=== PATIENT | male | born 1990 | race Caucasian/White ===

== ENCOUNTER 2025-05-08 09:36 | Emergency (ER) | payer OTHER, SELFPAY ==
--- OUTSIDE RECORDS SUMMARY | 2024-02-14 07:30 | XMS_ITS ---
Author Organization [facility] Address [address] [place] [id number] Care Team Providers Care Manager Of Selection And Assessment Name Role Phone NO, PCP Primary Care Provider [phone] [facility] Unavailable [phone] REASON FOR VISIT office: [facility] Encounters Encounter Location Date Provider Diagnosis [address] [id number] 02/14/2024 [facility] Plan Of Treatment No Information Progress Notes * Giovany FRANCISCOOB:[birth year] (35 yo M)Acc No.[id number]:02/14/2024 Patient: Jennifer mohinder PARRISH Provider: Jermaine ABRAMS [facility] :1990 A ge:34 Y S ex:Male Date:02/14/2024 [facility] [id number] Pcp:PCP NO Subjective: * Chief Complaints: * 1 . Office: [facility]. * Medical History: Objective: Assessment: Plan: * Images: Billing Information: Care Plan Details* * Electronic signature of [facility] on 05/08/2025 at 11:11 AM EDT Sign off status: Pending * Provider: Jermaine ABRAMS [facility] Date: 0 02/14/2024 Generated for Blaine altamirano/Rehan/eTransmitting on: 1 11:11 AM EDT
[2025-05-08 09:40] VITALS: BP 140/87; PULSE 76; RESP 18; TEMP 36.6; O2SAT 98; BMI 28.2
--- NOTE | 2025-05-08 09:47 | PC.NURSE ---
Patient walking to triage room with unsteady gait
--- NOTE | 2025-05-08 10:00 | ED.GENADULT ---
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 Approximately 9 days ago he sustained an injury while working with one of his clients. He describes being struck under his jaw when he was standing over the client. Apparently the patient stood up very rapidly and the client's head struck the patient on his jaw with a great deal of force. The patient has a headache and felt unwell immediately after. He was seen by a nurse at the facility where he works and was thought to possibly have a mild concussion. However over the ensuing hours the patient felt increasingly dizzy and nauseated. He had 2 episodes of vomiting and he felt confused. He was referred to an urgent care. At the urgent care they felt that he was ataxic and walking into gaona and so he was sent by ambulance to the [facility] Emergency room. At the [facility] Emergency room there was a very long wait. He says he was there for about 15 hours. Ultimately he was seen by a provider and had a head CT that was negative. He was felt to have a postconcussive syndrome and was discharged from the emergency room the following morning. The patient stayed out of work for the next couple of days but tried to returned to work on Sunday, 3 days ago. He was supposed to have certain accommodations at work which he says he was not given. He had worsening headache and photophobia and dizziness and he stayed out of work on Sunday and yesterday on . He was trying to get seen again at the urgent care. Today he had an appointment at the urgent care for these ongoing symptoms and he was referred to the emergency room because of concern about nystagmus. At the moment he describes having a headache, photophobia, and dizziness. Related Data Allergies Allergy/AdvReac Type Severity Reaction Status Date / Time No Known Allergies Allergy Verified 05/08/25 09:44 Review of Systems Review of Systems: Yes all other systems are reviewed and are negative PMFSH Social History Social History Advance Directives: No Advance Directives Information Provided: No Do you have a plan to hurt others: No Plan Physical Exam ED Vital Signs: Vital Signs - 24 hr 05/08/25 09:40 05/08/25 12:16 05/08/25 14:36 Temperature 97.9 F 98 F 98 F Pulse Rate 76 65 65 Respiratory Rate 18 16 16 Blood Pressure 140/87 H 100/56 L 100/56 L Pulse Oximetry 98 97 97 Oxygen Delivery Method Room Air Room Air Room Air BMI result Body Mass Index 28.2 Const Other: The patient is awake and alert. He had a normal mental status. He did not seem in obvious distress although he was sitting in a dark room and said that he was bothered by the lights. HENMT Other: Face is symmetrical. Mucous membranes moist. Tongue is midline. Eyes Other: Pupils are round and equal and reactive to light, extraocular movements are intact. There may be some extremely fine and very subtle nystagmus which does not really seem directional at all. However this is a very equivocal finding. Overall his eye exam seems unremarkable. Neck Other: No significant posterior midline C-spine tenderness. He was moving his neck fairly easily. C-spine was clinically clear. Resp Effort & Inspection: normal respiratory effort Auscultation: clear to auscultation bilaterally Cardio Rate: regular rate Rhythm: regular rhythm Heart sounds: S1 normal heart sound present and S2 normal heart sound present GI Other: Abdomen is soft and nontender Skin Other: The skin is dry and unremarkable Neuro Other: The patient is awake, alert, oriented, appropriate. He seems photophobic. However his mental status seems entirely clear and he was able to relate his history appropriately. There was no evidence of confusion or lack of fluency in his speech. Pupils are round, equal, and reactive to light. There may be some extremely fine nystagmus of uncertain significance.. His face is symmetrical. His speech is clear and without aphasia or dysarthria. He moves his extremities with symmetrical strength and coordination. Finger-nose is normal. Heel-duarte is normal. He seems to have a nonfocal neurological exam. Extrem Other: No peripheral edema Medications Administered Discontinued Medications Generic Name Dose Route Start Last Admin Trade Name Freq PRN Reason Stop Dose Admin Diphenhydramine HCl 25 mg 05/08/25 10:23 05/08/25 10:59 Diphenhydramine Hcl 50 Mg/Ml Vial IVPUSH 05/08/25 10:24 25 mg ONCE ONE Administration Sodium Chloride 1,000 mls @ 999 mls/hr 05/08/25 10:30 05/08/25 14:30 Ns IV 05/08/25 11:30 Infused .Q1H1M ARMANDO Infusion Ketorolac Tromethamine 15 mg 05/08/25 10:23 05/08/25 10:59 Ketorolac Tromethamine 15 Mg/Ml Vial IVPUSH 05/08/25 10:24 15 mg ONCE ONE Administration Metoclopramide HCl 10 mg 05/08/25 10:23 05/08/25 10:59 Metoclopramide Hcl 10 Mg/2 Ml Vial IVPUSH 05/08/25 10:24 10 mg ONCE ONE Administration Medical Decision Making Medical Decision Making [facility] Narrative: The patient is a 35-year-old male who presents to the emergency room with symptoms of a headache and nausea and photophobia 9 days after a head injury. He has already had a negative head CT at [facility]'s Emergency room. Clinically the patient does not seem significantly acutely ill and he does not have a concerning focal neurological finding. I do not think he requires additional imaging today. My assumption is that he is having some kind of a postconcussive syndrome. I do not see an indication for additional imaging. The patient was treated symptomatically with IV ketorolac, metoclopramide, diphenhydramine, and IV fluids. He felt considerably better. The patient will be discharged to rest over the weekend. He will resume work on Sunday with work restrictions that were provided by the occupational health clinic he has been to, [facility]. The patient is not have a primary care doctor. He is advised to try to get a primary care doctor. He should contact his insurance for a list of PCP's who take his insurance. He should return if worse. Discharge Plan Discharge Clinical Impression: Post-concussion headache Patient Disposition: Home, Self-Care Instructions: Concussion (ED) Additional Instructions: Please rest and take it easy over the weekend. Please keep your follow up appointment with the work-related injury clinic, [facility], next week. Please also work on getting a primary care doctor. I would recommend contacting your insurance to see what primary care doctor's might be taking your insurance. Return to the emergency room if significantly worse. Referrals: [facility] [Outside] Stand Alone Forms: Work/School Release Interventions: ED Discharge Assessment Last Done: 05/08/25 14:36 Discharge Date/Time: 05/08/25 14:36 Print Language: Vietnamese
--- OUTSIDE RECORDS SUMMARY | 2025-05-08 11:12 | XMS_ITS | Patient Health Record ---
Author Organization [facility] Address [address] [place] [id number] Care Team Providers Care Flare Stitcher Name Role Phone NO, PCP Primary Care Provider [facility] Unavailable [phone] Reason For Referral No Information Plan Of Treatment No Information Insurance Providers Payer Name Payer Address Payer Phone Subscriber Number Group Number Insured Name Patient Relationship to Insured Coverage Start Date Coverage End Date Insurance - None Need to apply for insurance [id number] [facility] [place] [id number] mohinder [place] Self - patient is the insured 4
--- OUTSIDE RECORDS SUMMARY | 2025-05-08 11:12 | XMS_ITS | Clinical Summary ---
Author Organization [facility] [place] [address] Care Team Providers Care Quarryman Name Role Phone Unknown Primary Care Provider Unavailabl e Immunizations Immunization Administration Dates Next Due Influenza Quadrivalent, Preservative Free 2016 Tdap (Adacel, Boostrix) 03/14/2017 Social History Tobacco Use Types Packs/Day Years Used Date Smoking Tobacco: Never Assessed Sex and Gender Information Value Date Recorded Sex Assigned at Not on file Legal Sex Male 8:55 AM EDT Gender Identity Not on file Sexual Orientation Not on file Last Filed Vital Signs Vital Sign Reading Time Taken Comments Blood Pressure 110/78 03/14/2017 3:52 PM EDT Sourced from [facility]version Pulse 113 03/14/2017 3:40 PM EDT Sourced from [facility] Temperature - - Respiratory Rate - - Oxygen Saturation - - Inhaled Oxygen Concentration - - Weight 122.9 kg (271 lb) 03/14/2017 3:4 0 PM EDT Sourced from [facility] Height 186.1 cm (6' 1.25 ) 03/14/2017 3 :40 PM EDT Sourced from [facility] Body Mass Index 35.51 03/14/2017 3:40 PM EDT Plan of Treatment Health Maintenance Due Date Last Done Comments HIV screen 01/03/2008 Hepatitis C Screening 01/03/2008 Lipid Screening 01/03/2008 Hepatitis B vaccine (0-59 yrs) and Risk (1) 2009 Covid-19 Vaccine (1 - 2024- season) 2025 Influenza (Flu) vaccine (1 o f 1 - Influenza standard series) 03/09/2025 03/14/2017 Tetanus/Diphtheria/Pertussis Vaccines (2 - Td or Tdap) 03/14/2027 03/14/2017 Insurance [facility] Care Teams Quarryman Relationship Specialty Start Date End Date Unknown None PCP - General 01/24/21
[2025-05-08 12:16] VITALS: BP 100/56; PULSE 65; RESP 16; TEMP 36.6; O2SAT 97
[2025-05-08 14:36] VITALS: BP 100/56; PULSE 65; RESP 16; TEMP 36.6; O2SAT 97
== END 2025-05-08 14:36 | disposition home or self-care (01) ==
PROVIDERS: Emergency Provider Emergency Medicine
DX: S09.93XA Unspecified injury of face, initial encounter (principal); W50.0XXA Accidental hit or strike by another person, initial encounter; Y93.F9 Activity, other caregiving; Y92.89 Other specified places as the place of occurrence of the external cause; Y99.0 Civilian activity done for income or pay; G44.309 Post-traumatic headache, unspecified, not intractable
CPT/HCPCS: 96361; 96374; 96375; 99284; J1200; J1885; J2765